=== PATIENT | female | born 2000 | race Caucasian/White ===

== ENCOUNTER 2020-10-12 14:30 | Emergency (ER) | payer MEDICAID ==
[~2020-10-12] VITALS: Ht 170.2 cm; Wt 86.2 kg
[2020-10-12 15:03] VITALS: BP 152/81
== END 2020-10-12 16:02 | disposition home or self-care (01) ==
LOC: ED 15:55
DX: B34.9 Viral infection, unspecified (principal); Z20.828 Contact with and (suspected) exposure to other viral communicable diseases; I45.9 Conduction disorder, unspecified; J45.909 Unspecified asthma, uncomplicated; R51.9 Headache, unspecified
CPT/HCPCS: 87635; 93005; 99284